=== PATIENT | male | born 1975 | race Caucasian/White ===

== ENCOUNTER 2024-06-22 01:22 | Emergency (ER) | payer BC, SELFPAY ==
[~2024-06-22] VITALS: Ht 177.8 cm; Wt 76.1 kg
[2024-06-22 08:14] LABS: MEAN CORPUSCULAR HEMOGLOBIN 30.7 pg (27.0-33.0); MEAN CORPUSCULAR HGB CONC 34.1 g/dl (32.0-36.5); PLATELET COUNT, AUTOMATED 250 10^3/uL (150-450); RED BLOOD COUNT 4.89 10^6/uL (4.30-6.10)
[2024-06-22 08:36] LABS: BLOOD UREA NITROGEN 19 MG/DL (9-23); CALCIUM LEVEL 9.4 MG/DL (8.5-10.1); CARBON DIOXIDE LEVEL 29 MMOL/L (20-31); CHLORIDE LEVEL 105 MMOL/L (98-107); CREATININE FOR GFR 1.01 MG/DL (0.70-1.30); GLOMERULAR FILTRATION RATE > 60.0 (>60); GLUCOSE, FASTING 94 MG/DL (60-100); POTASSIUM SERUM 4.3 MMOL/L (3.5-5.1); SODIUM LEVEL 140 MMOL/L (136-145)
[2024-06-22] MEDS ORDERED: HYDR-3713 PO (08:41)
[2024-06-22] MEDS ORDERED: FLOM0.4C39 PO (08:43)
[2024-06-22 08:50] VITALS: BP 106/66; TEMP 97.7; O2SAT 100
[2024-06-22] MEDS: TAMSULOSIN 0.4 MG CAP PO ONE (09:01)
== END 2024-06-22 09:12 | disposition home or self-care (01) ==
LOC: M ED 01:22
DX: N20.1 Calculus of ureter (principal); F90.9 Attention-deficit hyperactivity disorder, unspecified type; G40.909 Epilepsy, unspecified, not intractable, without status epilepticus; G80.9 Cerebral palsy, unspecified; K42.9 Umbilical hernia without obstruction or gangrene; N40.0 Benign prostatic hyperplasia without lower urinary tract symptoms; Z91.011 Allergy to milk products; Z79.899 Other long term (current) drug therapy

== ENCOUNTER → 2024-08-05 | Outpatient (CLI) | payer BC ==
[~2024-08-05] MED LIST: FLOM0.4C39 PO; HYDR-3713 PO
== END ==
LOC: M WUC 08:32
PROVIDERS: ATTEND Urology
DX: N20.0 Calculus of kidney (principal)